=== PATIENT | male | born 1950 | race Caucasian/White ===

== ENCOUNTER → 2017-03-02 | Outpatient (CLI) | payer OTHER | END | disposition home or self-care (01) | LOC: PCVCIMAG 13:05 | PROVIDERS: ATTEND Internal Medicine | DX: I35.0 Nonrheumatic aortic (valve) stenosis (principal); I38 Endocarditis, valve unspecified; I63.9 Cerebral infarction, unspecified | CPT/HCPCS: 93306; 93351 ==

== ENCOUNTER → 2017-07-29 | Outpatient (CLI) | payer MEDICARE | END | disposition home or self-care (01) | LOC: PCVCCLINIC 15:11 | PROVIDERS: ATTEND Internal Medicine | DX: I35.8 Other nonrheumatic aortic valve disorders (principal); I33.0 Acute and subacute infective endocarditis; I69.30 Unspecified sequelae of cerebral infarction; E78.2 Mixed hyperlipidemia; J43.2 Centrilobular emphysema; Z79.82 Long term (current) use of aspirin; Z79.899 Other long term (current) drug therapy; Z87.891 Personal history of nicotine dependence | CPT/HCPCS: 80061; 93005; G0463 ==

== ENCOUNTER → 2018-01-28 | Outpatient (CLI) | payer MEDICARE | LOC: PCVCCLINIC 13:37 | DX: I35.8 Other nonrheumatic aortic valve disorders (principal); I33.0 Acute and subacute infective endocarditis; E78.5 Hyperlipidemia, unspecified; I69.30 Unspecified sequelae of cerebral infarction; J43.2 Centrilobular emphysema; Z87.891 Personal history of nicotine dependence; Z79.899 Other long term (current) drug therapy; Z79.82 Long term (current) use of aspirin | CPT/HCPCS: 80061; 93005; G0463 ==

== ENCOUNTER → 2018-08-04 | Outpatient (CLI) | payer MEDICARE | END | disposition home or self-care (01) | LOC: PCVCCLINIC 14:22 | PROVIDERS: ATTEND Internal Medicine | DX: I35.8 Other nonrheumatic aortic valve disorders (principal); I33.0 Acute and subacute infective endocarditis; E78.5 Hyperlipidemia, unspecified; I69.30 Unspecified sequelae of cerebral infarction; J43.2 Centrilobular emphysema; Z87.891 Personal history of nicotine dependence; Z72.89 Other problems related to lifestyle; Z79.82 Long term (current) use of aspirin | CPT/HCPCS: 80061; 93005; G0463 ==

== ENCOUNTER → 2019-05-31 | Outpatient (CLI) | payer MEDICARE ==
--- NOTE | 2019-05-31 15:44 | PCVCIMAG ---
APPROVED REPORT Study performed: 05/31/2019 12:56:48 EXAM: Comprehensive 2D, Doppler, and color-flow Echocardiogram Patient Location: Echo lab Room #: 3Status: routine BSA: 1.99 HR: 58 bpmBP: 124/54 mmHg Rhythm: Bradycardia Other Information Study Quality: Good Indications Aortic Valve Disease CVA/TIA Hx: bacterial endocarditis, DVT,PE IVC filter 2D Dimensions IVSd: 9.49 (7-11mm)LVOT Diam: 21.47 (18-24mm) LVDd: 62.27 mm PWd: 10.57 (7-11mm)Ascending Ao: 33.17 (22-36mm) LVDs: 38.62 (25-40mm) Left Atrium: 38.47 (27-40mm) Aortic Root: 27.27 mm LV Single Plane 4CH: 63.50 % LV Single Plane 2CH: 65.14 % Biplane EF: 65.5 % Volumes Left Atrial Volume (Systole) Single Plane 4CH: 70.92 mLSingle Plane 2CH: 47.53 mL Biplane LA Volume: 58.00 mLLA ESV Index: 29.00 mL/m2 Aortic Valve AoV Peak Avel.: 3.35 m/s AO Peak Gr.: 48.17 mmHgLVOT Max P.63 mmHg AO Mean Gr.: 24.09 mmHgLVOT Mean P.75 mmHg AO V2 Mean: 2.32 m/sLVOT Max V: 1.26 m/s AO V2 VTI: 82.65 cmLVOT Mean V: 0.93 m/s ROMELIA (VTI): 1.35 [id number] V1 VTI: 30.86 cm ROMELIA Vmax: 1.36 cm2 AI Vmax: 4.91 m/sSV (LVOT): 111.68 mL AI Toole: 4.38 m/s2 AI PHT: 326.01 ms Mitral Valve E/A Ratio: 1.0 MV Decel. Time: 291.24 ms MV E Max Avel.: 0.78 m/s MV A Avel.: 0.80 m/s IVRT: 84.78 ms TDI E/Lateral E': 11.14E/Medial E': 7.80 Medial E' Avel.: 0.10 m/s Lateral E' Avel.: 0.07 m/s Pulmonary Valve PV Peak Avel.: 0.98 m/sPV Peak Gr.: 3.86 mmHg Pulmonary Vein P Vein S: 0.63 m/sP Vein A: 0.28 m/s P Vein D: 0.36 m/sP Vein A Dur.: 69.2 msec P Vein S/D Ratio: 1.75 Tricuspid Valve TR Peak Avel.: 3.79 m/s TR Peak Gr.: 57.53 mmHg TV Vmax: 0.32 m/sPA Pressure: 27.00 mmHg Left Ventricle Left ventricle is moderately dilated. There is normal LV segmental wall motion. There is normal left ventricular wall thickness. Left ventricular systolic function is normal. The left ventricular ejection fraction is within the normal range. LVEF is 60-65%. Mild diastolic dysfunction is present (impaired relaxation pattern). Right Ventricle The right ventricle is normal size. The right ventricular systolic function is normal. Atria The left atrium size is normal. The right atrium size is normal. Aortic Valve Aortic valve is trileaflet, mild-moderately calcified. Moderate to moderately severe aortic regurgitation Moderate aortic stenosis. Calculated aortic valve area is 1.4 cm2 with maximum pressure gradient of 45 mmHg and mean pressure gradient of 24 mmHg. Mitral Valve The mitral valve is normal in structure. There is no mitral valve regurgitation No evidence of mitral valve stenosis. Tricuspid Valve The tricuspid valve is normal in structure. Trace tricuspid regurgitation with a PA pressure of 27 mmHg. Pulmonic Valve The pulmonary valve is normal in structure. There is no pulmonic valvular regurgitation. Great Vessels The aortic root is normal in size. The ascending aorta is normal in size. Aortic arch is normal in caliber. IVC is normal in size and collapses >50% with inspiration. Pericardium There is no pericardial effusion. There is no pleural effusion. <Conclusion> Left ventricular systolic function is normal. There is normal LV segmental wall motion. LVEF is 60-65%. Mild diastolic dysfunction Aortic valve is trileaflet, mild-moderately calcified and stenotic. Moderate to moderately severe regurgitation Calculated aortic valve area is 1.4 cm2 with maximum pressure gradient of 45 mmHg and mean pressure gradient of 24 mmHg. Moderate to moderately severe regurgitation The mitral valve is normal. No mitral valve regurgitation Trace tricuspid regurgitation with a pulmonary artery pressure of 27 mmHg. There is no pericardial effusion.
== END | disposition home or self-care (01) ==
LOC: PCVCIMAG 12:45
PROVIDERS: ATTEND Internal Medicine
DX: I35.2 Nonrheumatic aortic (valve) stenosis with insufficiency (principal); I33.0 Acute and subacute infective endocarditis; E78.5 Hyperlipidemia, unspecified; I69.30 Unspecified sequelae of cerebral infarction; J43.2 Centrilobular emphysema; Z79.82 Long term (current) use of aspirin; Z87.891 Personal history of nicotine dependence
CPT/HCPCS: 36415; 80061; 93005; 93306; G0463